=== PATIENT | male | born 1995 | race Caucasian/White ===

== ENCOUNTER 2021-03-18 15:21 | Emergency (ER) | payer MEDICARE, SELFPAY ==
[2021-03-18 15:22] VITALS: BP 131/100; PULSE 145; RESP 18; TEMP 36.9; O2SAT 94; BMI 24.7
--- NOTE | 2021-03-18 15:42 | EKG12_ITS ---
Test Reason : REPEAT Blood Pressure : / mmHG Vent. Rate : 116 BPM Atrial Rate : 116 BPM P-R Int : 092 ms QRS Dur : 074 ms QT Int : 322 ms P-R-T Axes : 082 085 067 degrees QTc Int : 447 ms Sinus tachycardia with short OK Otherwise normal ECG Confirmed by SKYLER COATES, MAGDALENO ([id number]), marketing assistant manager OG MORAN ([id number]) on 03/21/2021 11:12:54 AM Referred By: JUANA Confirmed By:MAGDALENO HOLLAND MD
[2021-03-18 15:45] VITALS: O2SAT 99
--- NOTE | 2021-03-18 16:00 | RAD_ITS ---
STUDY: X-RAY CHEST REASON FOR EXAM: Male, 26 years old. chest pain TECHNIQUE: AP portable COMPARISON: None. FINDINGS: Surgical clips projecting over the left upper lobe. There is generalized hyperinflation. No focal infiltration... There is no demonstrated pleural abnormality. Normal size heart. Normal mediastinum and monica. Normal visualized pulmonary arteries. Normal visualized aortic arch and descending thoracic aorta. Normal visualized thoracic spine. Normal visualized ribs, clavicles, and shoulders. There is no demonstrated abnormality of the visualized soft tissue structures of the upper abdomen. RAD/Chest 1 View (Portable) IMPRESSION: No acute cardiopulmonary pathology Electronically Signed: Skip Sneed MD at 16:18 EDT , Service support ,
[2021-03-18 16:05] LABS: Absolute Lymphocyte Count 0.82 X10^3/uL (0.83-4.51); Absolute Neutrophil Count 13.2 X10^3/uL (2.0-7.7); Basophil# 0.04 X10^3/uL; Basophil% 0.3 % (0-1); Eosinophil# 0.01 X10^3/uL; Eosinophils% 0.1 % (0-5); Hematocrit 53.1 % (40-54); Hemoglobin 17.6 g/dL (13.0-16.5); Lymphocyte # 0.82 X10^3/ul (0.83-4.51); Lymphocyte % 5.6 % (19-41); Mean Corp Hgb Conc 33.1 g/dL (32-36); Mean Corpuscular Hgb 31.6 pg (27.0-32.0); Mean Corpuscular Volume 95.3 fL (80-94); Mean Platelet Vol. 9.2 fl (6.2-12.0); Monocyte# 0.58 X10^3/uL; NRBC Flagged by Analyzer 0 % (0-5); Neutrophil # 13.15 X10^3/uL (2.7-7.7); Neutrophil % 89.7 % (47-70); Platelet Count 274 K/mm3 (150-450); RBC Distribution Width CV 12.3 % (11.6-14.6); RBC Distribution Width SD 43.4 fl (35.1-43.9); Red Blood Count 5.57 M/mm3 (4.6-6.2); White Blood Count 14.6 K/mm3 (4.4-11.0)
[2021-03-18] MEDS: Adenosine 6 MG/2 ML Syringe IV (16:10)
--- NOTE | 2021-03-18 16:20 | ED.VIS.CHEST ---
HPI History of Present Illness Chief Complaint: Palpitations Informant: patient Onset/Context/Timing Onset: Yesterday Activity at onset: unknown Timing: Intermittent Quality: Positive for Sharp and Stabbing Location: Substernal Current Severity: Gone Maximum Severity: Moderate Worsened By: Nothing Relieved By: Nothing Associated Symptoms: Positive for - (Fatigue today, no other symptoms); Negative for Nausea, Vomiting, Diaphoresis, Dyspnea, Cough, Lightheadedness, Acid Reflux and Palpitations Narrative Narrative: Patient had an exposure to someone with Covid along with his significant other so they were at a clinic today getting checked out and tested, his Covid test returned negative, he was tachycardic and referred to the ER. He states he did not feel like his heart was racing today, he has just felt tired. He had some sharp chest pains last night that were unusual but they were transient and brief and went away and have not recurred today. Denies any dyspnea, or other focal symptoms or recent illness that he knows of. 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 [facility] Medical History (Updated 03/18/21 @ 19:[address] Ruy Delgadillo MD) Spontaneous pneumothorax Home Medications cholecalciferol (vitamin D3) [Vitamin D3] 5,000 mcg PO QWEEK 03/18/21 [History Last Taken Unknown] prednisone 10 mg PO DAILY 03/18/21 [History Last Taken Unknown] sulfamethoxazole-trimethoprim [Bactrim DS] 1 tab PO MOWEFR 03/18/21 [History Last Taken Unknown] Allergy/AdvReac Type Severity Reaction Status Date / Time azithromycin [From Zithromax] Allergy Other Verified 03/18/21 15:24 Surgical History (Updated 03/18/21 @ 16:[address] Ruy Delgadillo MD) Status post lobectomy of lung Social History Smoking Status: Never smoker ROS ROS ED Constitutional Constitutional ED: Reports fatigue; Denies chills or fever(s) Eyes Eyes: Denies change in vision or diplopia ENT ENT ED: Denies rhinorrhea or sore throat Cardiovascular Cardiovascular: Denies chest pain or palpitations Respiratory/Chest Respiratory/Chest: Denies cough or dyspnea Gastrointestinal Gastrointestinal: Denies abdominal pain, diarrhea, nausea or vomiting Genitourinary Genitourinary ED: Denies dysuria or hematuria Musculoskeletal Musculoskeletal: Denies back pain or neck pain Integumentary Denies abscess or rash Neurologic Neurologic: Denies headache(s), paresthesias or weakness Psychiatric Psychiatric: Denies anxiety or suicidal thoughts EXAM Physical Exam Const Vital Signs: 03/18/21 15:22 03/18/21 15:41 03/18/21 15:45 Temperature 98.4 F Temperature Source Temporal Pulse Rate 145 H Respiratory Rate 18 Respiratory Effort Normal Non-Labored Blood Pressure 131/100 H Blood Pressure Mean 110 Pulse Ox 94 99 Oxygen Delivery Method Room Air Nasal Cannula Oxygen Flow Rate (L/min) 2 03/18/21 16:47 03/18/21 18:18 Temperature Temperature Source Pulse Rate 124 H 120 H Respiratory Rate 19 H 16 Respiratory Effort Blood Pressure 139/81 H 125/85 H Blood Pressure Mean 100 98 Pulse Ox 100 98 Oxygen Delivery Method Room Air Room Air Oxygen Flow Rate (L/min) Positive well nourished and well developed General Appearance ED: well developed and NAD HEENT Reports moist mucous membranes normocephalic and atraumatic Eyes PERRL and EOMs intact bilaterally Neck full ROM and supple Resp normal respiratory effort and clear to auscultation bilaterally Cardio regular rate, regular rhythm and no murmurs Rate: tachycardic GI non-tender and non-distended Auscultation: normoactive bowel sounds Palpation: soft Back/Spine no CVA tenderness General Back: other FROM Extremity normal to inspection General Extremety ED: Negative for edema, pulses abnormal or tenderness General Extremity: Negative for edema or pulses abnormal Neuro oriented x3, CN's II-XII intact bilaterally and no sensory deficits noted Sensorium / Orientation: awake and alert Motor Exam: strength 5/5 throughout Skin no rashes or lesions noted and no wounds MDM MDM MDM Narrative Medical decision making narrative: Initially modified Valsalva maneuver was attempted, it did nothing to the patient's rhythm which was still tachycardic in the 140s. I then gave him adenosine 6 mg, this resulted in brief symptoms that we commonly see with adenosine, feeling a little lightheaded and funny, however there is no change in his rhythm or pause in the rhythm. Therefore I felt it would be useless to repeat this with 12 mg. His work-up is negative except for his EKG, and is nonspecific leukocytosis. He has a short WA interval. I discussed with cardiology Dr. Zhou. The patient is now resting in the 110-115 range and is asymptomatic. There is no delta wave, so WPW is less likely, LGL syndrome is in the differential diagnosis. Cardiology recommended discharge home with close outpatient cardiology follow-up, and a 24-hour or 48-hour Holter. We are able to do 1 for 24 hours, the patient was placed with and fitted with 1, and discharged home with close outpatient follow-up advice. Of note, at discharge, the patient states that he normally has a high resting heart rate and his sales representative meats told him it was related to his chronic pulmonary disease/scarring/abnormality. I still think it is reasonable to follow-up with cardiology because of the abnormal WA interval. Lab Data Attestation: I reviewed the patient's lab results. Labs: Laboratory Results - last 24 hr 03/18/21 03/18/21 15:53 15:53 WBC 14.6 H RBC 5.57 Hgb 17.6 H Hct 53.1 MCV 95.3 H MCH 31.6 MCHC 33.1 RDW Std Deviation 43.4 RDW Coeff of [place] 12.3 Plt Count 274 MPV 9.2 Immature Gran % (Auto) 0.300 Neut % (Auto) 89.7 H Lymph % (Auto) 5.6 L [place] % (Auto) 4.0 Eos % (Auto) 0.1 Baso % (Auto) 0.3 Absolute Neuts (auto) 13.2 H Absolute Lymphs (auto) 0.82 L Nucleated RBC % 0 Sodium 139 Potassium 4.0 Chloride 104 Carbon Dioxide 29.0 Anion Gap 6 BUN 13 Creatinine 1.16 Estim Creat Clear Calc 90.22 Est GFR (MDRD) Af Amer 98 Est GFR (MDRD) Non-Af 81 BUN/Creatinine Ratio 11.2 Glucose 147 H Calcium 9.5 Troponin I < 0.015 Radiography Chest X-Ray - ED: 1 View, Read by ED Physician and Normal Diagnostic Testing: Radiology Impression Chest X-Ray 03/18/21 16:00 IMPRESSION: No acute cardiopulmonary pathology Electronically Signed: Skip Sneed MD at 16:18 EDT , Service support , EKG Initial EKG: Attestation: I personally reviewed and interpreted this EKG as follows: Interpretation: No Acute Injury Pattern and Sinus Tachycardia (vs SVT/AVNRT) Prior EKG tracings: not available for review Follow-up EKG: Attestation: I personally reviewed and interpreted this EKG as follows: Interpretation: No Acute Injury Pattern and Sinus Tachycardia Comments: Short WA; otherwise normal Discharge Plan Triage Chief Complaint: Palpitations ED Provider: Ruy Delgadillo Dx/Rx/DC Orders Clinical Impression: Tachycardia, Chest pain, unspecified Instructions: ED Tachycardia: PAT Prescriptions: No Action prednisone 10 mg Tablet 10 mg PO DAILY RF: 0 sulfamethoxazole-trimethoprim [Bactrim DS] 800-160 mg Tablet 1 tab PO MOWEFR RF: 0 cholecalciferol (vitamin D3) [Vitamin D3] 125 mcg (5,000 unit) Tablet 5,000 mcg PO QWEEK RF: 0 Primary Care Provider: Onesimo Pack Referrals: Siva Rosenbaum MD [STAFF PHYSICIAN] - 3-5 Days Onesimo Pack DO [Primary Care Provider] - Disposition Disposition: Home, self care
[2021-03-18 16:25] LABS: Anion Gap 6 (5-15); BUN 13 mg/dL (7-18); BUN/Creat Ratio 11.2 RATIO (10-20); Calcium,Total 9.5 mg/dL (8.5-10.1); Chloride 104 mmol/L (98-107); Creatinine, Serum 1.16 mg/dL (0.70-1.30); EST Glomerular Filtration Rate 81 mL/min (>60); Est Glom Filt Rate - Afr Amer 98 mL/min (>60); Estimated Creatinine Clearance 90.22 ml/min; Glucose 147 mg/dL (74-106); Sodium Level 139 mmol/L (136-145)
[2021-03-18 16:47] VITALS: BP 139/81; PULSE 124; RESP 19; O2SAT 100
--- NOTE | 2021-03-18 17:42 | EKG12_ITS ---
Test Reason : TACHY Blood Pressure : / mmHG Vent. Rate : 133 BPM Atrial Rate : 133 BPM P-R Int : 098 ms QRS Dur : 076 ms QT Int : 288 ms P-R-T Axes : 085 085 080 degrees QTc Int : 428 ms Sinus tachycardia with short NC Nonspecific T wave abnormality Abnormal ECG Confirmed by SKYLER COATES, MAGDALENO ([id number]), film editor OG MORAN ([id number]) on 03/21/2021 11:13:07 AM Referred By: JUANA Confirmed By:MAGDALENO HOLLAND MD
[2021-03-18 18:18] VITALS: BP 125/85; PULSE 120; RESP 16; O2SAT 98
[2021-03-18 19:26] VITALS: BP 149/92; PULSE 110; RESP 16; O2SAT 96
== END 2021-03-18 19:26 | disposition home or self-care (01) ==
PROVIDERS: Emergency Provider Emergency Medicine
DX: R00.0 Tachycardia, unspecified (principal); R07.9 Chest pain, unspecified; Z87.09 Personal history of other diseases of the respiratory system; Z90.81 Acquired absence of spleen
CPT/HCPCS: 71045; 80048; 84484; 85025; 93005; 99284; J7030; J0153

== ENCOUNTER → 2021-03-18 18:40 | Outpatient (CLI) | payer MEDICARE, SELFPAY ==
[2021-03-18 15:22] VITALS: BMI 24.7
== END ==
PROVIDERS: Visit Provider Emergency Medicine
DX: R00.0 Tachycardia, unspecified (principal); R07.9 Chest pain, unspecified; Z87.09 Personal history of other diseases of the respiratory system; Z90.81 Acquired absence of spleen
CPT/HCPCS: 71045; 80048; 84484; 85025; 93005; 93225; 93226; 99284; J7030; J0153

== ENCOUNTER → 2021-04-26 10:16 | Outpatient (CLI) | payer MEDICARE, SELFPAY ==
[2021-04-26 09:40] VITALS: BMI 24.7
[2021-04-26 11:16] LABS: T4 Total, Thyroxin 7.1 ug/dL (4.5-12.1); Thyroid Stim Hormone (TSH) 0.96 uIU/mL (0.358-3.74)
== END ==
PROVIDERS: Referring Provider Internal Medicine Cardiovascular Disease; Visit Provider Internal Medicine Cardiovascular Disease
DX: R00.0 Tachycardia, unspecified (principal)
CPT/HCPCS: 36415; 84436; 84443

== ENCOUNTER → 2021-05-08 08:46 | Outpatient (CLI) | payer MEDICARE, MEDICAID, SELFPAY ==
[2021-04-26 09:40] VITALS: BMI 24.7
--- NOTE | 2021-05-08 08:50 | ECHOCS_ITS ---
Reason For Study: Arrhythmia Procedure This was a 2D Doppler, Color Flow transthoracic echocardiogram. Very technically difficult study, contrast injection performed. Parasternal, apical and subcostal images all taken from subcostal region. Exam performed in department. Left Ventricle Normal LV size. Left ventricular systolic function is normal. The estimated ejection fraction is 60 %. Stage 1 diastolic dysfunction. No regional wall motion abnormalities noted. Right Ventricle Normal RV size. Normal systolic function. Atria Normal left atrium. Normal right atrium. Mitral Valve There is mild to moderate mitral annular calcification. Tricuspid Valve Normal tricuspid valve. Great Vessels Normal aortic root. The pulmonary artery is normal size. Pericardium/Pleural No pericardial effusion. Medication 22 gauge I.V. with prn adaptor inserted into right arm. Diluted definity 4ml given slow IV push to enhance endocardial definition. MMode/2D Measurements & Calculations LVIDd: 3.7 cm IVSd: 0.55 cm LA dimension: 2.7 cm LVIDs: 3.2 cm LVPWd: 0.76 cm FS: 13.7 % LAV(MOD-bp): 23.0 ml LA A4 area: 10.1 cm2 LAV(MOD-bp) Indexed: 12.5 ml/m2 LAV(MOD-sp2): 23.4 ml LAV(MOD-sp4): 20.6 ml Time Measurements MV dec time: 0.20 sec Doppler Measurements & Calculations MV E max robert: 56.5 cm/sec Lat Peak E' Robert: 13.7 cm/sec Med Peak E' Robert: 12.8 cm/sec MV A max robert: 64.5 cm/sec E/E' lat: 4.1 E/E' med: 4.4 MV E/A: 0.88 Ao V2 max: 80.0 cm/sec LV V1 max: 73.1 cm/sec PA V2 max: 73.4 cm/sec Ao max P.6 mmHg LV V1 max P.1 mmHg ECHO/Echo Complete W/ Contrast Interpretation Summary Normal LV size. Left ventricular systolic function is normal. The estimated ejection fraction is 60 %. Stage 1 diastolic dysfunction. Contrast injection was performed. Ordering Physician: Siva Rosenbaum Referring Physician: Onesimo Pack Performed By: Robin Monroy RCS
== END ==
PROVIDERS: Referring Provider Internal Medicine Cardiovascular Disease; Visit Provider Internal Medicine Cardiovascular Disease
DX: R94.31 Abnormal electrocardiogram [ECG] [EKG] (principal)
CPT/HCPCS: 93306; Q9957; A4216; C8929; J3490